=== PATIENT | male | born 1985 | race Caucasian/White ===

== ENCOUNTER 2021-01-22 22:42 | Emergency (ER) | payer OTHER ==
[~2021-01-22] VITALS: Ht 177.8 cm; Wt 81.7 kg
[2021-01-22] MEDS ORDERED: HUMIRA40 MG/0.8 SUB-Q (23:12)
[2021-01-22] MEDS ORDERED: GABAPENTIN800 MG PO (23:13)
[2021-01-22] MEDS ORDERED: OMEPRAZOLE40 MG PO (23:13)
[2021-01-22] MEDS ORDERED: DOXYCYCLINE HY100 MG PO (23:52)
--- OUTSIDE RECORDS SUMMARY | 2021-01-23 01:32 | XMS ---
PreManage Notification: HUYEN MOISE Security Cl[employer] She[employer] Supervisor Events No recent Security Events currently on file [facility] There are no care providers on record at this time. Karen has no Care Guidelines for this patient. [place] VISIT COUNT (12 MO.) 1 Daniel Perdue TOTAL 2 NOTE: Visits indicate total known visits. ED/C VISIT TRACKING (12 MO.) 01/22/2021 22:43 [facility] Modi [place] TYPE: Emergency COMPLAINT: - POSS SKIN INFECTION 02/18/2020 17:56 Daniel SHORT OR TYPE: Emergency DIAGNOSES: - Constipation, unspecified - Constipation - Rectal complaint INPATIENT VISIT TRACKING (12 MO.) No inpatient visits to display in this time frame [email or web address]
== END 2021-01-23 00:12 | disposition home or self-care (01) ==
LOC: ED 22:42
DX: L03.114 Cellulitis of left upper limb (principal); F17.200 Nicotine dependence, unspecified, uncomplicated; Z88.0 Allergy status to penicillin; Z88.1 Allergy status to other antibiotic agents; Z79.899 Other long term (current) drug therapy
CPT/HCPCS: 99283